=== PATIENT | male | born 1965 | race Caucasian/White ===

== ENCOUNTER 2021-11-16 19:47 | Emergency (ER) | payer OTHER, SELFPAY ==
--- NOTE | 2021-11-16 19:53 | ED.URI ---
HPI - URI/Sore Throat General Chief Complaint: Upper Respiratory Infection Stated Complaint: flu symptons Time Seen by Provider: 11/16/21 19:53 Source: patient and RN notes reviewed History of Present Illness HPI Narrative: Patient is a 56-year-old male who presents the urgent care with complaints of intermittent fever, chills, sweats, diarrhea and body aches. Patient states he had his vaccine 2 days ago and has been having symptoms ever since then. Patient states that he was tested for Covid at work which was negative. Patient states that the nurse turned him away and told him to go home because he needs to be retested for Covid and influenza before he can return to work. Patient has been taking Tylenol [id number] for his chills and sweats. Denies of any cough. No other acute complaints. No acute distress noted. Patient aware of the plan of care. Some parts of this dictation were generated by voice recognition software and may contain typographical and/or grammatical inaccuracies. Related Data Home Medications Medication Instructions Recorded Confirmed alprazolam 1 mg PO BID 11/16/21 11/16/21 amlodipine 2.5 mg PO DAILY 11/16/21 11/16/21 atorvastatin 40 mg PO DAILY 11/16/21 11/16/21 fluticasone furoate-vilanterol 1 inh INHALATION DAILY 11/16/21 11/16/21 [Breo Ellipta] levothyroxine 75 mcg PO DAILY 11/16/21 11/16/21 levothyroxine 200 mcg PO DAILY 11/16/21 11/16/21 testosterone cypionate 200 mg IM WEEKLY 11/16/21 11/16/21 Allergies Allergy/AdvReac Type Severity Reaction Status Date / Time No Known Allergies Allergy Unknown Verified 11/16/21 19:58 Review of Systems Review of Systems: CONSTITUTIONAL: Reports of fever, chills, sweats EYES: Denies visual changes, redness, or discharge. ENT: Denies rhinorrhea, congestion, sore throat, or otalgia. CARDIOVASCULAR: Denies chest pain, palpitations, or edema. RESPIRATORY: Denies cough or dyspnea. GASTROINTESTINAL: Reports of loose stools and nausea GENITOURINARY: Denies dysuria or hematuria. SKIN: Denies rash or itching. MUSCULOSKELETAL: Denies back pain, joint pain. Reports of body aches NEUROLOGIC: Denies headache, numbness, or weakness. All other systems reviewed are negative, except as documented in HPI. PMFSH Comments At the time of my signature, I reviewed and agree with the nursing past medical, surgical, social, and family history. There is no relevant family history pertinent to the patient complaint. Exam Narrative: GENERAL: This is a well-nourished, well-developed patient, in no apparent distress. HEAD: normocephalic, atraumatic. EYES: PERRL. Sclera clear/white. Vision is grossly intact. EARS: External ears normal NOSE: External nose normal with no obvious nasal discharge, nares without redness, no rhinorrhea. THROAT: Mucous membranes moist, posterior pharynx clear. Moderate postnasal drainage NECK: Neck supple CARDIOVASCULAR: Regular rate and rhythm without murmurs, gallops, or rubs. RESPIRATORY: Clear to auscultation. Breath sounds equal bilaterally. No wheezes, rales, or rhonchi. GASTROINTESTINAL: Abdomen soft, non-tender, nondistended. Bowel sounds are hyperactive. No guarding. SKIN: warm, intact with no suspicious lesions or rash, good texture and turgor. NEURO: awake, alert, and oriented to person, place and time. There were no obvious focal neurologic abnormalities. EXTREMITIES: No clubbing, cyanosis, or edema. Course Course Level of Care: Express Care Visit Vital Signs Vital signs: Vital Signs Temperature 98 F 11/16/21 20:01 Pulse Rate 85 11/16/21 20:01 Respiratory Rate 16 11/16/21 20:01 Blood Pressure 153/98 H 11/16/21 20:01 Pulse Oximetry 98 11/16/21 20:01 Temperature 98 F 11/16/21 20:01 Pulse Rate 85 11/16/21 20:01 Respiratory Rate 16 11/16/21 20:01 Blood Pressure 153/98 H 11/16/21 20:01 Pulse Oximetry 98 11/16/21 20:01 Reviewed-patient is informed that they may have pre-hypertension or hypertensi
[2021-11-16 20:01] VITALS: BP 153/98; PULSE 85; RESP 16; TEMP 36.6; O2SAT 98
== END 2021-11-16 20:10 | disposition home or self-care (01) ==
PROVIDERS: Emergency Provider Nurse Practitioner Family
DX: T88.1XXA Other complications following immunization, not elsewhere classified, initial encounter (principal); R50.9 Fever, unspecified; R19.7 Diarrhea, unspecified; R52 Pain, unspecified; E78.00 Pure hypercholesterolemia, unspecified; I10 Essential (primary) hypertension; Z86.16 Personal history of COVID-19; G47.30 Sleep apnea, unspecified; E03.9 Hypothyroidism, unspecified
CPT/HCPCS: 87804; 99213; G0463

== ENCOUNTER 2022-12-07 13:16 | Emergency (ER) | payer OTHER, SELFPAY ==
[2022-12-07 13:30] VITALS: BP 135/83; PULSE 78; RESP 18; TEMP 37; O2SAT 97
--- NOTE | 2022-12-07 13:43 | ED.GENADULT ---
HPI - General Adult General Chief complaint: Skin/Abscess/Foreign Body Stated complaint: Irritation to upper left thigh at injection site Time Seen by Provider: 12/07/22 13:44 History of Present Illness HPI narrative: patient presents with 7 day history of irritation to injection site. area warm to touch slightly red no streaing and no drainage. Related Data Home Medications Medication Instructions Recorded Confirmed alprazolam 1 mg tablet 1 mg PO BID 11/16/21 11/16/21 amlodipine 2.5 mg tablet 2.5 mg PO DAILY 11/16/21 11/16/21 atorvastatin 40 mg tablet 40 mg PO DAILY 11/16/21 11/16/21 fluticasone furoate 100 1 inh inhalation DAILY 11/16/21 11/16/21 mcg-vilanterol 25 mcg/dose inhalation powder (Breo Ellipta) levothyroxine 200 mcg tablet 200 mcg PO DAILY 11/16/21 11/16/21 levothyroxine 75 mcg tablet 75 mcg PO DAILY 11/16/21 11/16/21 testosterone cypionate 200 mg/mL 200 mg IM WEEKLY 11/16/21 11/16/21 intramuscular oil Allergies Allergy/AdvReac Type Severity Reaction Status Date / Time No Known Allergies Allergy Unknown Verified 12/07/22 13:38 Review of Systems Review of Systems: CONSTITUTIONAL: Denies fever, chills, or sweats. EYES: Denies visual changes, redness, or discharge. ENT: Denies rhinorrhea, congestion, sore throat, or otalgia. CARDIOVASCULAR: Denies chest pain, palpitations, or edema. RESPIRATORY: Denies cough or dyspnea. GASTROINTESTINAL: Denies abdominal pain, nausea, vomiting, or diarrhea. GENITOURINARY: Denies dysuria or hematuria. SKIN: Denies rash or itching. MUSCULOSKELETAL: Denies back pain, joint pain, or myalgia. NEUROLOGIC: Denies headache, numbness, or weakness. PSYCHIATRIC: Denies anxiety or depression. PMFSH Comments At time of signature, agree with nursing past medical, surgical, social and family history. There is no relevant family history pertinent to the presenting complaint Exam Narrative: GENERAL: Well-appearing, well-nourished, and in no acute distress. HEAD: Normocephalic, atraumatic. EYES: PERRLA and EOMI. ENT: Nares clear, no rhinorrhea or epistaxis. Mucous membranes moist. NECK: Supple. CHEST: Clear to auscultation. No respiratory distress. HEART: Regular rate and rhythm. No murmur heard. Normal peripheral pulses. ABDOMEN: Soft, nontender, nondistended, normal active bowel sounds. EXTREMITIES: Normal range of motion. No edema. SKIN: Warm, dry, no rash. 2 cm area of redness and tenderness to touch to left thigh. No streaking some concern for cellulitis no abscess formation NEURO: No focal deficits. Alert and oriented x3. [place] Coma Scale Eye Opening: Spontaneous 4 Chaz Coma Scale Motor: Obeys Commands 6 [place] Coma Scale Verbal: Oriented 5 [place] Coma Scale Total 15 Course Course Level of Care: Express Care Visit Vital Signs Vital signs: Vital Signs Temperature 37.0 C 12/07/22 13:30 Pulse Rate 78 12/07/22 13:30 Respiratory Rate 18 12/07/22 13:30 Blood Pressure 135/83 12/07/22 13:30 Pulse Oximetry 97 12/07/22 13:30 Oxygen Delivery Room Air 12/07/22 13:30 Temperature 37.0 C 12/07/22 13:30 Pulse Rate 78 12/07/22 13:30 Respiratory Rate 18 12/07/22 13:30 Blood Pressure 135/83 12/07/22 13:30 Pulse Oximetry 97 12/07/22 13:30 Oxygen Delivery Room Air 12/07/22 13:30 Medical Decision Making Vital Signs Vital Signs: Vital Signs Temperature 37.0 C 12/07/22 13:30 Pulse Rate 78 12/07/22 13:30 Respiratory Rate 18 12/07/22 13:30 Blood Pressure 135/83 12/07/22 13:30 Pulse Oximetry 97 12/07/22 13:30 Oxygen Delivery Room Air 12/07/22 13:30 Temperature 37.0 C 12/07/22 13:30 Pulse Rate 78 12/07/22 13:30 Respiratory Rate 18 12/07/22 13:30 Blood Pressure 135/83 12/07/22 13:30 Pulse Oximetry 97 12/07/22 13:30 Oxygen Delivery Room Air 12/07/22 13:30 Discharge Plan Discharge Clinical Impression: Cellulitis, Injection site irritation Patient Disposition: Home,
== END 2022-12-07 13:51 | disposition home or self-care (01) ==
PROVIDERS: Emergency Provider Nurse Practitioner Family
DX: T80.29XA Infection following other infusion, transfusion and therapeutic injection, initial encounter (principal); L03.116 Cellulitis of left lower limb; E78.00 Pure hypercholesterolemia, unspecified; I10 Essential (primary) hypertension; E03.9 Hypothyroidism, unspecified; G47.30 Sleep apnea, unspecified; Z86.16 Personal history of COVID-19
CPT/HCPCS: 99213; G0463

== ENCOUNTER 2023-02-20 11:56 | Emergency (ER) | payer OTHER, SELFPAY ==
[2023-02-20 12:00] VITALS: BP 134/71; PULSE 71; RESP 20; TEMP 36.7; O2SAT 96
--- NOTE | 2023-02-20 12:02 | ED.SKABFB ---
HPI - Skin/Abscess/Foreign Bdy General Chief complaint: Ear Stated complaint: knot behind left ear Time Seen by Provider: 02/20/23 12:02 Source: patient and RN notes reviewed History of Present Illness HPI narrative: Patient is a 57-year-old male who presents to urgent care with complaints of a knot behind the left ear. Patient states that he noticed yesterday. States that he also has a scab with some irritation to the left side of the scalp which he noticed several days ago. Patient denies any fever, nausea or vomiting. Patient states that ?this has happened before but seemed to resolve quickly?. Patient states he does have a hat that rubs directly to that area as well as wearing a CPAP. Patient states that 2 days ago he wear headphones while on the lawnmower for a long period of time, irritating the area of concern. Patient has not done anything [id number] for his symptoms. No other acute complaints. No acute distress noted. Patient aware of the plan of care. Some parts of this dictation were generated by voice recognition software and may contain typographical and/or grammatical inaccuracies. Related Data Home Medications Medication Instructions Recorded Confirmed alprazolam 1 mg tablet 1 mg PO BID 11/16/21 02/20/23 atorvastatin 40 mg tablet 40 mg PO DAILY 11/16/21 02/20/23 fluticasone furoate 100 1 inh inhalation DAILY 11/16/21 02/20/23 mcg-vilanterol 25 mcg/dose inhalation powder (Breo Ellipta) levothyroxine 75 mcg tablet 75 mcg PO DAILY 11/16/21 02/20/23 testosterone cypionate 200 mg/mL 200 mg IM WEEKLY 11/16/21 02/20/23 intramuscular oil amlodipine 10 mg tablet 10 mg PO DAILY 02/20/23 02/20/23 anastrozole 1 mg tablet 1 mg PO DIRECTED 02/20/23 02/20/23 cholecalciferol (vitamin D3) 25 25 mcg PO DIRECTED 02/20/23 02/20/23 mcg (1,000 unit) tablet (Vitamin D3) meloxicam 15 mg tablet 15 mg PO DIRECTED 02/20/23 02/20/23 semaglutide 2 mg/dose (8 mg/3 mL) 8 mg subcut DIRECTED 02/20/23 02/20/23 subcutaneous pen injector (Ozempic) Allergies Allergy/AdvReac Type Severity Reaction Status Date / Time No Known Allergies Allergy Unknown Verified 02/20/23 12:10 Review of Systems Review of Systems: CONSTITUTIONAL: Denies fever, chills, or sweats. EYES: Denies visual changes, redness, or discharge. ENT: Denies rhinorrhea, congestion, sore throat, or otalgia. CARDIOVASCULAR: Denies chest pain, palpitations, or edema. RESPIRATORY: Denies cough or dyspnea. GASTROINTESTINAL: Denies abdominal pain, nausea, vomiting, or diarrhea. GENITOURINARY: Denies dysuria or hematuria. SKIN: Reports of a redness and irritation to the left scalp and a knot behind the left ear MUSCULOSKELETAL: Denies back pain, joint pain, or myalgia. NEUROLOGIC: Denies headache, numbness, or weakness. All other systems reviewed are negative, except as documented in HPI. PMFSH Comments At the time of my signature, I reviewed and agree with the nursing past medical, surgical, social, and family history. There is no relevant family history pertinent to the patient complaint. Exam Narrative: GENERAL: This is a well-nourished, well-developed patient, in no apparent distress. HEAD: normocephalic, atraumatic. EYES: PERRL. Sclera clear/white. Vision is grossly intact. EARS: External ears normal, auditory canals clear and without drainage, TMs normal without perforation. Hearing grossly intact. NOSE: External nose normal with no obvious nasal discharge, nares without redness, no rhinorrhea. THROAT: Mucous membranes moist, posterior pharynx clear. NECK: Neck supple SKIN: 3 x 3 cm soft/mildly fluctuant sebaceous cyst/abscess without redness behind the left ear. Irritated folliculitis with center scabbing to the left temporal scalp. Warm, intact with no suspicious lesions or rash, good texture and turgor. NEURO: awake, alert, and oriented to person, place and time. There were no obvious focal neurologic abnormalities. EXTREMITIES:
== END 2023-02-20 12:36 | disposition home or self-care (01) ==
PROVIDERS: Emergency Provider Nurse Practitioner Family
DX: L72.3 Sebaceous cyst (principal); L73.9 Follicular disorder, unspecified; E78.00 Pure hypercholesterolemia, unspecified; I10 Essential (primary) hypertension; G47.30 Sleep apnea, unspecified; E03.9 Hypothyroidism, unspecified
CPT/HCPCS: 99213; G0463